=== PATIENT | female | born 1960 | race African-American/Black ===

== ENCOUNTER 2017-04-27 18:47 | Emergency (ER) | payer OTHER ==
[~2017-04-27] VITALS: Ht 154.9 cm; Wt 96.4 kg
[~2017-04-27 18:47] MED LIST: AMLO-511 PO; LISI-618 PO; METF500T4 PO
[2017-04-27 19:12] LABS: GLUCOSE,POINT OF CARE 265 MG/DL (70-110)
[2017-04-27] MEDS ORDERED: PERTUSS(ACELL),DIPH,TET VAC/PF 0.5 ML VIAL IM ONE (20:00)
[2017-04-27 20:44] VITALS: BP 180/107
== END 2017-04-27 20:46 | disposition home or self-care (01) ==
LOC: EMS 18:49
DX: S01.80XA Unspecified open wound of other part of head, initial encounter (principal); S20.419A Abrasion of unspecified back wall of thorax, initial encounter; E11.9 Type 2 diabetes mellitus without complications; I10 Essential (primary) hypertension; J40 Bronchitis, not specified as acute or chronic; F17.210 Nicotine dependence, cigarettes, uncomplicated; X99.8XXA Assault by other sharp object, initial encounter; Y93.89 Activity, other specified; Y92.89 Other specified places as the place of occurrence of the external cause; Y99.8 Other external cause status
CPT/HCPCS: 82962; 90471; 90715; 99283

== ENCOUNTER 2017-09-06 03:21 | Emergency (ER) | payer OTHER ==
[~2017-09-06] VITALS: Ht 165.1 cm; Wt 100.0 kg
[2017-09-06] MEDS ORDERED: METF10002 PO (03:38)
[2017-09-06] MEDS ORDERED: FURO40TA5 PO (03:38)
[2017-09-06] MEDS ORDERED: POTA10TA14 PO (03:38)
[2017-09-06] MEDS ORDERED: LISI10TA7 PO (03:38)
[2017-09-06] MEDS ORDERED: GLYB5 PO (03:38)
[2017-09-06] MEDS ORDERED: SIMV40TA5 PO (03:38)
[2017-09-06] MEDS ORDERED: AMLO10TA55 PO (03:38)
[2017-09-06 03:42] LABS: GLUCOSE,POINT OF CARE 388 MG/DL (70-110)
[2017-09-06 06:17] VITALS: BP 151/103
[2017-09-06 06:52] LABS: GLUCOSE,POINT OF CARE 274 MG/DL (70-110)
== END 2017-09-06 06:53 | disposition home or self-care (01) ==
LOC: EDUNIT# 03:21 → EMS 03:24
DX: S00.03XA Contusion of scalp, initial encounter (principal); E11.9 Type 2 diabetes mellitus without complications; I10 Essential (primary) hypertension; F17.210 Nicotine dependence, cigarettes, uncomplicated; Y00.XXXA Assault by blunt object, initial encounter; Y93.89 Activity, other specified; Y92.89 Other specified places as the place of occurrence of the external cause; Y99.8 Other external cause status
CPT/HCPCS: 70450; 82962; 99284

== ENCOUNTER 2017-09-19 01:55 | Emergency (ER) | payer OTHER ==
[~2017-09-19] VITALS: Ht 154.9 cm; Wt 91.8 kg
[~2017-09-19 01:55] MED LIST changes: -AMLO-511 PO; +AMLO10TA55 PO; +FURO40TA5 PO; +GLYB5 PO; -LISI-618 PO; +LISI10TA7 PO; +METF10002 PO; +POTA10TA14 PO; +SIMV40TA5 PO
[2017-09-19 02:12] LABS: GLUCOSE,POINT OF CARE 187 MG/DL (70-110)
[2017-09-19 06:39] LABS: BASOPHILS # (AUTO) 0.05 K/uL (0.00-0.20); BASOPHILS % (AUTO) 0.4 % (0.0-2.0); EOSINOPHILS # (AUTO) 0.27 K/uL (0.00-0.70); EOSINOPHILS % (AUTO) 2.13 % (1.0-6.0); HEMATOCRIT 38.8 % (36-46); HEMOGLOBIN 12.5 g/dL (12.0-16.0); LYMPHOCYTES # (AUTO) 2.6 K/uL (1.0-4.8); MEAN CORPUSCULAR HEMOGLOBIN 27.7 pg (26.0-34.0); MEAN CORPUSCULAR HGB CONC 32.2 G/dL (31.0-37.0); MEAN CORPUSCULAR VOLUME 86 fL (80-100); MONOCYTES # (AUTO) 0.7 K/uL (0.1-1.0); MONOCYTES % (AUTO) 5.5 % (2.0-9.0); NEUTROPHILS # (AUTO) 8.9 K/uL (1.8-7.7); PLATELET COUNT (AUTO) 224 K/uL (150-450); RED BLOOD CELL COUNT(AUTO) 4.51 MIL/uL (4.00-5.20); RED CELL DISTRIBUTION WIDTH 13.8 % (11.5-14.5)
[2017-09-19 06:51] LABS: PROTHROMBIN TIME 10.5 SEC (9.4-11.6)
[2017-09-19 06:55] LABS: ANION GAP 9 mmol/L (8-16); CALCIUM, TOTAL 9.1 mg/dL (8.8-10.5); CARBON DIOXIDE 29 mmol/L (22-29); CHLORIDE 102 mmol/L (98-107); CREATININE 0.79 mg/dL (0.60-1.30); GLOMERULAR FILTR. RATE CALC > 60 mL/min (>60); GLUCOSE,RANDOM 162 mg/dL (70-110); POTASSIUM 3.8 mmol/L (3.5-5.1); SODIUM SERUM 140 mmol/L (136-145); UREA NITROGEN, BLOOD 12 mg/dL (7-18)
[2017-09-19] MEDS ORDERED: ASPIRIN 325 MG TABLET PO ONE (07:00)
[2017-09-19 07:08] LABS: ALANINE AMINOTRANSFERASE 29 U/L (12-78); ALBUMIN 3.3 g/dL (3.4-5.0); ALKALINE PHOSPHATASE 99 U/L (46-116); ASPARTATE AMINOTRANSFERASE 26 U/L (15-37); BILIRUBIN,TOTAL 0.4 mg/dL (0.1-1.0); CREATINE KINASE, TOTAL 78 U/L (26-192); TOTAL PROTEIN, SERUM 7.3 g/dL (6.4-8.2)
[2017-09-19 07:34] LABS: B-TYPE NATRIURETIC PEPTIDE 14 pg/mL (0-100)
[2017-09-19 07:51] LABS: CREATINE KINASE MB 0.8 ng/mL (0-5)
[2017-09-19 08:31] VITALS: BP 146/92
== END 2017-09-19 09:27 | disposition home or self-care (01) ==
LOC: EMS 01:56
DX: R07.89 Other chest pain (principal); E11.9 Type 2 diabetes mellitus without complications; I10 Essential (primary) hypertension; F17.210 Nicotine dependence, cigarettes, uncomplicated
CPT/HCPCS: 82962; 93005; 99285

== ENCOUNTER 2017-09-19 19:36 | Emergency (ER) | payer OTHER ==
[~2017-09-19] VITALS: Ht 154.9 cm; Wt 91.0 kg
[2017-09-19 20:12] LABS: GLUCOSE,POINT OF CARE 288 MG/DL (70-110)
[2017-09-19 22:23] VITALS: BP 129/71
== END 2017-09-19 22:27 | disposition home or self-care (01) ==
LOC: EMS 19:38
DX: F10.129 Alcohol abuse with intoxication, unspecified (principal); E11.65 Type 2 diabetes mellitus with hyperglycemia; R47.81 Slurred speech; I10 Essential (primary) hypertension; F17.210 Nicotine dependence, cigarettes, uncomplicated; Z02.89 Encounter for other administrative examinations
CPT/HCPCS: 82962; 99283

== ENCOUNTER 2017-10-19 14:43 | Emergency (ER) | payer OTHER ==
[~2017-10-19] VITALS: Ht 157.5 cm; Wt 92.5 kg
[~2017-10-19 14:43] MED LIST changes: -METF500T4 PO
[2017-10-19] MEDS ORDERED: POVIDONE-IODINE 10% 15 ML SOLUTION UD TP ONE (16:15)
[2017-10-19] MEDS ORDERED: LIDOCAINE HCL 1% 10 ML VIAL INJ ONE (16:15)
[2017-10-19] MEDS ORDERED: ACETAMINOPHEN 325 MG TABLET PO ONE (16:15)
[2017-10-19] MEDS ORDERED: BACITRACIN 0.9 GM PACKET OINTMENT TP ONE (16:15)
[2017-10-19 17:42] VITALS: BP 132/80
== END 2017-10-19 17:48 | disposition home or self-care (01) ==
LOC: EMS 14:45
DX: S61.215A Laceration without foreign body of left ring finger without damage to nail, initial encounter (principal); S51.811A Laceration without foreign body of right forearm, initial encounter; E11.9 Type 2 diabetes mellitus without complications; I10 Essential (primary) hypertension; J40 Bronchitis, not specified as acute or chronic; F17.210 Nicotine dependence, cigarettes, uncomplicated; X99.0XXA Assault by sharp glass, initial encounter; Y93.89 Activity, other specified; Y92.89 Other specified places as the place of occurrence of the external cause; Y99.8 Other external cause status
CPT/HCPCS: 12001; 99283; J3490

== ENCOUNTER 2017-10-25 12:48 | Emergency (ER) | payer OTHER ==
[~2017-10-25] VITALS: Ht 154.9 cm; Wt 92.7 kg
[2017-10-25 13:40] VITALS: BP 164/101
== END 2017-10-25 14:02 | disposition home or self-care (01) ==
LOC: EMS 12:49
DX: Z48.02 Encounter for removal of sutures (principal); E11.9 Type 2 diabetes mellitus without complications; I10 Essential (primary) hypertension; F17.210 Nicotine dependence, cigarettes, uncomplicated
CPT/HCPCS: 82962; 99281; 99282

== ENCOUNTER 2017-11-14 02:30 | Emergency (ER) | payer OTHER ==
[~2017-11-14] VITALS: Ht 170.2 cm; Wt 79.5 kg
[2017-11-14] MEDS ORDERED: ACETAMINOPHEN 500 MG TABLET PO ONE (05:15)
[2017-11-14 05:56] VITALS: BP 140/83
== END 2017-11-14 05:58 | disposition home or self-care (01) ==
LOC: EMS 02:31
DX: S00.03XA Contusion of scalp, initial encounter (principal); E11.9 Type 2 diabetes mellitus without complications; I10 Essential (primary) hypertension; F17.210 Nicotine dependence, cigarettes, uncomplicated; W50.0XXA Accidental hit or strike by another person, initial encounter; Y93.89 Activity, other specified; Y92.89 Other specified places as the place of occurrence of the external cause; Y99.8 Other external cause status
CPT/HCPCS: 99282; 99283; 99406

== ENCOUNTER 2018-02-26 21:23 | Emergency (ER) | payer OTHER ==
[~2018-02-26] VITALS: Ht 154.9 cm; Wt 103.2 kg
[~2018-02-26 21:23] MED LIST changes: -METF10002 PO; +METF10004 PO
[2018-02-26 21:53] LABS: GLUCOSE,POINT OF CARE 194 MG/DL (70-110)
[2018-02-26 23:10] VITALS: BP 145/86
[2018-02-26] MEDS ORDERED: KETOROLAC TROMETHAMINE 10 MG TABLET PO ONE (23:15)
== END 2018-02-26 23:13 | disposition home or self-care (01) ==
LOC: EMS 21:24
DX: S83.91XA Sprain of unspecified site of right knee, initial encounter (principal); I10 Essential (primary) hypertension; E11.9 Type 2 diabetes mellitus without complications; F17.210 Nicotine dependence, cigarettes, uncomplicated; Z79.899 Other long term (current) drug therapy; W19.XXXA Unspecified fall, initial encounter; Y93.89 Activity, other specified; Y92.89 Other specified places as the place of occurrence of the external cause; Y99.8 Other external cause status
CPT/HCPCS: 99284

== ENCOUNTER 2018-09-13 22:21 | Emergency (ER) | payer OTHER ==
[~2018-09-13] VITALS: Ht 165.1 cm; Wt 72.7 kg
[~2018-09-13 22:21] MED LIST changes: +METF-446 PO; -METF10004 PO
[2018-09-13 22:59] LABS: GLUCOSE,POINT OF CARE 97 MG/DL (70-110)
[2018-09-14 03:14] VITALS: BP 148/88
[2018-09-14] MEDS ORDERED: KETOROLAC TROMETHAMINE 30 MG/ML VIAL IM ONE (03:45)
== END 2018-09-14 04:36 | disposition home or self-care (01) ==
LOC: EMS 22:22
DX: M25.511 Pain in right shoulder (principal); M25.512 Pain in left shoulder; G89.29 Other chronic pain; E11.9 Type 2 diabetes mellitus without complications; I10 Essential (primary) hypertension; F17.210 Nicotine dependence, cigarettes, uncomplicated; Z79.899 Other long term (current) drug therapy; Z79.84 Long term (current) use of oral hypoglycemic drugs
CPT/HCPCS: 82962; 96372; 99283; J1885

== ENCOUNTER 2018-12-03 14:19 | Emergency (ER) | payer OTHER ==
[~2018-12-03] VITALS: Ht 162.6 cm; Wt 97.7 kg
[2018-12-03 14:53] LABS: GLUCOSE,POINT OF CARE 60 MG/DL (70-110)
[2018-12-03 16:07] LABS: BASOPHILS % (AUTO) 1.2 % (0.0-2.0); EOSINOPHILS % (AUTO) 1.6 % (1.0-6.0); HEMOGLOBIN 13.5 g/dL (12.0-16.0); LYMPHOCYTES % (AUTO) 27.1 % (22.0-44.0); MEAN CORPUSCULAR HEMOGLOBIN 27.9 pg (26.0-34.0); MEAN CORPUSCULAR HGB CONC 32.1 G/dL (31.0-37.0); MEAN CORPUSCULAR VOLUME 87 fL (80-100); MONOCYTES # (AUTO) 0.5 K/uL (0.1-1.0); MONOCYTES % (AUTO) 6.9 % (2.0-9.0); NEUTROPHILS # (AUTO) 4.6 K/uL (1.8-7.7); NEUTROPHILS % (AUTO) 63.2 % (40.0-70.0); PLATELET COUNT (AUTO) 253 K/uL (150-450); RED BLOOD CELL COUNT(AUTO) 4.83 MIL/uL (4.00-5.20); RED CELL DISTRIBUTION WIDTH 15.2 % (11.5-14.5)
[2018-12-03 16:27] LABS: ANION GAP 18 mmol/L (8-16); CALCIUM, TOTAL 9.5 mg/dL (8.8-10.5); CARBON DIOXIDE 20 mmol/L (22-29); CHLORIDE 103 mmol/L (98-107); CREATININE 0.79 mg/dL (0.60-1.30); GLOMERULAR FILTR. RATE CALC > 60 mL/min (>60); GLUCOSE,RANDOM 82 mg/dL (70-110); SODIUM SERUM 141 mmol/L (136-145); UREA NITROGEN, BLOOD 16 mg/dL (7-18)
[2018-12-03 16:29] LABS: GLUCOSE,POINT OF CARE 92 MG/DL (70-110)
[2018-12-03 16:33] LABS: ALANINE AMINOTRANSFERASE 25 U/L (12-78); ALBUMIN 3.5 g/dL (3.4-5.0); ALKALINE PHOSPHATASE 91 U/L (46-116); ASPARTATE AMINOTRANSFERASE 23 U/L (15-37); BILIRUBIN,TOTAL 0.2 mg/dL (0.1-1.0); TOTAL PROTEIN, SERUM 7.9 g/dL (6.4-8.2)
[2018-12-03 17:29] VITALS: BP 114/75
== END 2018-12-03 17:53 | disposition home or self-care (01) ==
LOC: EMS 14:20
DX: E11.649 Type 2 diabetes mellitus with hypoglycemia without coma (principal); F10.129 Alcohol abuse with intoxication, unspecified; I10 Essential (primary) hypertension; F17.210 Nicotine dependence, cigarettes, uncomplicated; Z79.899 Other long term (current) drug therapy; Y90.6 Blood alcohol level of 120-199 mg/100 ml
CPT/HCPCS: 36415; 80053; 82962; 85025; 99283; G0480

== ENCOUNTER 2019-06-17 02:07 | Emergency (ER) | payer OTHER ==
[~2019-06-17] VITALS: Ht 154.9 cm; Wt 87.7 kg
[~2019-06-17 02:07] MED LIST changes: +SIMV-46 PO; -SIMV40TA5 PO
[2019-06-17 02:35] LABS: GLUCOSE,POINT OF CARE 97 MG/DL (70-110)
[2019-06-17] MEDS ORDERED: IPRATROPIUM BROMIDE 0.5 MG/2.5 ML NEB SOLUTION NEB ONE ×2 (04:00→06:30)
[2019-06-17] MEDS ORDERED: ALBUTEROL SULFATE 2.5 MG/0.5 ML NEB SOLUTION NEB ONE ×2 (04:00→06:30)
[2019-06-17] MEDS ORDERED: ALBUTEROL SULFATE HFA 90 MCG/PUFF 8 GM INHALER IH ONE (06:30)
[2019-06-17] MEDS ORDERED: PredniSONE 20 MG TABLET PO ONE (06:30)
[2019-06-17 07:34] VITALS: BP 165/99
== END 2019-06-17 07:50 | disposition home or self-care (01) ==
LOC: EMS 02:09
DX: J44.9 Chronic obstructive pulmonary disease, unspecified (principal); J40 Bronchitis, not specified as acute or chronic; F17.210 Nicotine dependence, cigarettes, uncomplicated; E11.9 Type 2 diabetes mellitus without complications; I10 Essential (primary) hypertension; Z79.899 Other long term (current) drug therapy; Z79.84 Long term (current) use of oral hypoglycemic drugs
CPT/HCPCS: 71045; 82962; 94640; 99285; 99406; J7512; J3535

== ENCOUNTER 2019-09-18 01:34 | Emergency (ER) | payer OTHER ==
[~2019-09-18] VITALS: Ht 154.9 cm; Wt 88.6 kg
[2019-09-18 03:16] LABS: GLUCOSE,POINT OF CARE 102 MG/DL (70-110)
[2019-09-18 06:42] VITALS: BP 170/90
== END 2019-09-18 06:51 | disposition home or self-care (01) ==
LOC: EMS 01:34
DX: S80.812A Abrasion, left lower leg, initial encounter (principal); M79.89 Other specified soft tissue disorders; E11.9 Type 2 diabetes mellitus without complications; I10 Essential (primary) hypertension; F17.210 Nicotine dependence, cigarettes, uncomplicated; Z79.899 Other long term (current) drug therapy; Z79.84 Long term (current) use of oral hypoglycemic drugs; W50.0XXA Accidental hit or strike by another person, initial encounter; Y93.89 Activity, other specified; Y92.89 Other specified places as the place of occurrence of the external cause; Y99.8 Other external cause status
CPT/HCPCS: 93971

== ENCOUNTER 2019-11-16 07:21 | Emergency (ER) | payer OTHER ==
[~2019-11-16] VITALS: Ht 154.9 cm; Wt 88.6 kg
[2019-11-16] MEDS ORDERED: LISI-618 PO (07:46)
[2019-11-16] MEDS ORDERED: DICL100T85 PO (07:46)
[2019-11-16] MEDS ORDERED: ASPI-1111 PO (07:47)
[2019-11-16 10:13] LABS: BASOPHILS % (AUTO) 1.1 % (0.0-2.0); EOSINOPHILS % (AUTO) 2.8 % (1.0-6.0); HEMATOCRIT 38.6 % (36-46); HEMOGLOBIN 12.6 g/dL (12.0-16.0); LYMPHOCYTES # (AUTO) 2.6 K/uL (1.0-4.8); LYMPHOCYTES % (AUTO) 32.3 % (22.0-44.0); MEAN CORPUSCULAR HEMOGLOBIN 28.1 pg (26.0-34.0); MEAN CORPUSCULAR HGB CONC 32.6 G/dL (31.0-37.0); MEAN CORPUSCULAR VOLUME 86 fL (80-100); MONOCYTES # (AUTO) 0.5 K/uL (0.1-1.0); MONOCYTES % (AUTO) 6.5 % (2.0-9.0); NEUTROPHILS # (AUTO) 4.6 K/uL (1.8-7.7); NEUTROPHILS % (AUTO) 57.3 % (40.0-70.0); PLATELET COUNT (AUTO) 239 K/uL (150-450); RED BLOOD CELL COUNT(AUTO) 4.48 MIL/uL (4.00-5.20); RED CELL DISTRIBUTION WIDTH 15.5 % (11.5-14.5)
[2019-11-16 10:24] LABS: ANION GAP 9 mmol/L (8-16); CALCIUM, TOTAL 9.6 mg/dL (8.8-10.5); CARBON DIOXIDE 27 mmol/L (22-29); CHLORIDE 104 mmol/L (98-107); CREATININE 0.81 mg/dL (0.60-1.30); GLOMERULAR FILTR. RATE CALC > 60 mL/min (>60); GLUCOSE,RANDOM 101 mg/dL (70-110); POTASSIUM 4.2 mmol/L (3.5-5.1); SODIUM SERUM 140 mmol/L (136-145); UREA NITROGEN, BLOOD 30 mg/dL (7-18)
[2019-11-16 10:29] LABS: ALANINE AMINOTRANSFERASE 27 U/L (12-78); ALBUMIN 3.6 g/dL (3.4-5.0); ALKALINE PHOSPHATASE 98 U/L (46-116); ASPARTATE AMINOTRANSFERASE 27 U/L (15-37); BILIRUBIN,TOTAL 0.3 mg/dL (0.1-1.0); LIPASE 134 U/L (73-393); TOTAL PROTEIN, SERUM 7.6 g/dL (6.4-8.2)
[2019-11-16 12:07] VITALS: BP 145/83
== END 2019-11-16 12:29 | disposition home or self-care (01) ==
LOC: EMS 07:23
DX: R60.0 Localized edema (principal); M79.89 Other specified soft tissue disorders; E11.9 Type 2 diabetes mellitus without complications; I10 Essential (primary) hypertension; F17.210 Nicotine dependence, cigarettes, uncomplicated; Z79.899 Other long term (current) drug therapy; Z79.84 Long term (current) use of oral hypoglycemic drugs
CPT/HCPCS: 93971

== ENCOUNTER 2022-01-27 10:01 | Day surgery (SDC) | payer OTHER ==
[~2022-01-27] VITALS: Ht 154.9 cm; Wt 110.7 kg
[~2022-01-27 10:01] MED LIST changes: -AMLO10TA55 PO; +ASPI-1444 PO; +DICL100T85 PO; -FURO40TA5 PO; +GLYB-145 PO; -GLYB5 PO; -LISI10TA7 PO; +LISI20TA24 PO; -POTA10TA14 PO; -SIMV-46 PO; +SODIUM CHLORIDE 0.9% 1,000 ML IV ONE; +SODIUM CHLORIDE 0.9% 1,000 ML ONE
[2022-01-27] MEDS ORDERED: PROPOFOL 1% 20 ML VIAL IVP ONE (10:02)
[2022-01-27 10:47] LABS: COVID AG,FIA SOURCE NASOPHARYNGEAL
[2022-01-27 11:31] LABS: GLUCOMETER DEV NAME(LOC) SDS.; GLUCOSE,POINT OF CARE 141 MG/DL (70-110)
== END 2022-01-27 14:20 | disposition home or self-care (01) ==
LOC: SURGERY 10:01
PROVIDERS: ATTEND Internal Medicine Gastroenterology
DX: D64.9 Anemia, unspecified (principal); K64.0 First degree hemorrhoids; K29.70 Gastritis, unspecified, without bleeding; K29.80 Duodenitis without bleeding; K25.9 Gastric ulcer, unspecified as acute or chronic, without hemorrhage or perforation; E11.22 Type 2 diabetes mellitus with diabetic chronic kidney disease; E11.40 Type 2 diabetes mellitus with diabetic neuropathy, unspecified; J45.909 Unspecified asthma, uncomplicated; N18.30 Chronic kidney disease, stage 3 unspecified; E11.69 Type 2 diabetes mellitus with other specified complication; I73.9 Peripheral vascular disease, unspecified; E78.5 Hyperlipidemia, unspecified; E66.01 Morbid (severe) obesity due to excess calories; E11.59 Type 2 diabetes mellitus with other circulatory complications; D50.9 Iron deficiency anemia, unspecified; M17.0 Bilateral primary osteoarthritis of knee; Z79.82 Long term (current) use of aspirin; Z79.4 Long term (current) use of insulin; Z79.899 Other long term (current) drug therapy; Z98.890 Other specified postprocedural states; Z86.718 Personal history of other venous thrombosis and embolism; Z20.822 Contact with and (suspected) exposure to COVID-19
CPT/HCPCS: 43239; 45378; 82962; 87426; 88305; 88312; 88313; 88341; 88342; C9803; J2704; J7030